=== PATIENT | female | born 1950 | race Caucasian/White ===

== ENCOUNTER 2020-12-27 15:26 | Emergency (ER) | payer OTHER, MEDICARE ==
[2020-12-27 15:49] VITALS: BP 163/86; PULSE 73
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
--- NOTE | 2020-12-27 16:30 | CT ---
Cervical spine CT Technique: Multiple axial sections were obtained from above C1 inferiorly to the bottom of T2. Reconstructed coronal and sagittal images were obtained. Findings: Degenerative change is noted between the dens and anterior arch of C1. There is moderate disc space narrowing at C3-4 and C4-5. Severe disc space narrowing is seen at C5-6. Severe disc space narrowing is noted at T2-3. Diffuse degenerative apophyseal change is seen throughout the cervical spine. Slightly abnormal cervical curvature is seen which is felt to be degenerative in etiology. Mild bilateral neural foraminal stenosis is noted at C5-6. Other neural foramina are felt to be fairly well patent. Visualized lung apices show nothing acute. Calcifications are seen posterior to the spinous process of C6 which are felt to be old. On the AP view, degenerative change is noted within the uncovertebral joints which is most prominent at C5-6. No acute fracture or abnormal subluxation is seen. Impression: 1. Diffuse degenerative change as described above. 2. No acute fracture or acute subluxation is seen. Diagnostic code #2
== END 2020-12-27 17:20 | disposition home or self-care (01) ==
LOC: JD.ED 15:26
DX: M50.322 Other cervical disc degeneration at C5-C6 level (principal); E03.9 Hypothyroidism, unspecified; Z79.899 Other long term (current) drug therapy; Z88.0 Allergy status to penicillin; Z88.5 Allergy status to narcotic agent
CPT/HCPCS: 72125; 72125-26; 99283-25; 99284